=== PATIENT | male | born 1945 | race Caucasian/White ===

== ENCOUNTER → 2024-05-04 | Outpatient (CLI) | payer MEDICARE, OTHER, SELFPAY ==
[2024-05-04 09:47] LABS: Collection Type, Urine Clean Catch
[2024-05-04 10:40] LABS: Basophils # (Auto) 0.1 Thou/mm3 (0.0-0.2); Basophils % (Auto) 1 % (0-2.5); Eosinophils # (Auto) 0.2 Thou/mm3 (0.0-0.5); Eosinophils % (Auto) 2 % (0-10); Hematocrit 48.8 % (41.0-53.0); Hemoglobin 16.6 g/dL (13.5-16.0); Immature Granulocytes % (Auto) 1 % (0-0); Immature Granulocytes Auto 0.09 Thou/mm3 (0.00-0.00); Lymphocytes # (Auto) 1.2 Thou/mm3 (1.0-4.8); Lymphocytes % (Auto) 12 % (10-50); Mean Corpuscular Hemoglobin 29.1 pg (25.0-35.0); Mean Corpuscular Volume 86 fL (80-100); Monocytes # (Auto) 0.9 Thou/mm3 (0.0-0.8); Monocytes % (Auto) 9 % (0-12); Neutrophils # (Auto) 7.2 Thou/mm3 (1.8-7.7); Neutrophils % (Auto) 75 % (37-80); Nucleated Red Blood Cell % 0 /100 WBC (0); Platelet Count 183 Thou/mm3 (140-440); RDW Standard Deviation 40.6 fL (35.1-43.9); Red Blood Count 5.71 Miln/mm3 (4.50-5.90); White Blood Count 9.6 Thou/mm3 (3.8-10.6)
[2024-05-04 10:46] LABS: Bilirubin,Urine Negative (Negative); Blood,Urine 1+ (Negative); Budding Yeast,Urine Present; Color,Urine Yellow (Lt Yel-Yel); Glucose, Urine Negative (Negative); Hyaline Casts,Urine < 1 /hpf (0-1); Ketones,Urine Negative (Negative); Leukocyte Esterase,Urine Positive (Negative); Nitrite,Urine Negative (Negative); PH,Urine 6.5 (5.0-7.0); Protein,Urine 1+ (Neg - Trace); RBC,Urine 23 /hpf (0-3); Specific Gravity,Urine 1.018 (1.001-1.035); Squamous Epithelial Cell,Urine 1 /hpf (0-5); Urobilinogen,Urine Negative mg/dL (0.0-1.0); WBC,Urine 86 /hpf (0-5)
[2024-05-04 11:00] LABS: Clarity,Urine Hazy (Clear/Hazy)
[2024-05-04 11:13] LABS: Alanine Aminotransferase 27 U/L (10-49); Albumin, Serum 4.6 gm/dL (3.4-4.8); Albumin/Globulin Ratio 1.6 (1.2-2.2); Alkaline Phosphatase 81 U/L (46-116); Anion Gap 9 (7-16); Aspartate Amino Transferase 19 U/L (0-34); BUN/Creatinine Ratio 12 Ratio (12-20); Bilirubin,Total 1.4 mg/dL (0.3-1.2); Blood Urea Nitrogen 17 mg/dL (9-23); Calcium 9.7 mg/dL (8.3-10.6); Calcium (Corrected) 9.7 mg/dL (8.5-10.1); Carbon Dioxide 28.4 mMol/L (20.0-31.0); Chloride 105 mMol/L (98-107); Cholesterol 187 mg/dL (132-200); Creatinine (Component) 1.4 mg/dL (0.6-1.3); Globulin 2.9 gm/dL (2.3-3.5); Glucose 135 mg/dL (74-106); HDL Cholesterol 47 mg/dL (40-60); LDL Cholesterol,Calculated 125 mg/dL (0-130); Osmolality,Calculated 286 (275-295); Potassium 4.6 mMol/L (3.4-5.1); Sodium 142 mMol/L (136-145); Thyroid Stimulating Hormone 1.46 uIU/mL (0.55-4.78); Total Protein 7.5 gm/dL (5.7-8.2); Triglycerides 77 mg/dL (30-150); eGFR 51 See Note
[2024-05-04 11:21] LABS: Creatinine MALB Rnd Ur 116 mg/dL (30-125); Microalbumin Creat Ratio 265 mg/gCrea (<30); Microalbumin, Random Urine 307 mg/L (0-300)
[2024-05-06 15:36] LABS: PSA, Total 8.6 ng/mL (< OR = 4.0)
[2024-05-07 07:05] LABS: PSA, % Free 21 % (calc) (>25)
== END | disposition home or self-care (01) ==
LOC: COPL 08:38
PROVIDERS: PCP Family Medicine; Referring Provider Family Medicine; Visit Provider Urology
DX: Z00.00 Encounter for general adult medical examination without abnormal findings (principal); I10 Essential (primary) hypertension; N40.1 Benign prostatic hyperplasia with lower urinary tract symptoms; Z13.0 Encounter for screening for diseases of the blood and blood-forming organs and certain disorders involving the immune mechanism; Z13.1 Encounter for screening for diabetes mellitus; Z13.21 Encounter for screening for nutritional disorder; Z13.220 Encounter for screening for lipoid disorders; Z13.29 Encounter for screening for other suspected endocrine disorder
CPT/HCPCS: 36415; 80053; 80061; 81001; 82043; 82570; 84153; 84154; 84443; 85025; 87086

== ENCOUNTER 2024-05-19 06:35 | Day surgery (SDC) | payer MEDICARE, OTHER, SELFPAY ==
[2024-05-19] VITALS (16 sets, daily range): BP systolic 96–197; BP diastolic 59–132; PULSE 84–107; RESP 12–22; TEMP 36.2–37; O2SAT 95–99; BMI 25.5
[2024-05-19] MEDS: hydrALAZINE INJ 20 MG/ML VIAL IV (07:54)
[2024-05-19] MEDS: DiphenhydrAMINE INJ 50 MG/ML VIAL 25 MG IV (07:55)
[2024-05-19] MEDS: fentaNYL CIT INJ 50 mCg/ML AMP 2ML (ASD USE ONLY) 25 MCG IV (07:56)
[2024-05-19] MEDS: MIDAZOLAM INJ 1 MG/ML VIAL 2 ML (ASD USE ONLY) 2 MG IV (07:56)
--- NOTE | 2024-05-19 08:05 | SUR.PHASEII ---
0805 patient is sleepy and arousable, breathing unlabored, s/p colonoscopy by dr daniels, report received from Gabby ALEXANDER
--- NOTE | 2024-05-19 09:13 | SUR.PHASEII ---
0913 patient is awake, alert, breathing unlabored, meets discharge criteria, discharge instructions given to patient and Camila, patient discharged home in wheelchair with all belongings
== END 2024-05-19 09:13 | disposition home or self-care (01) ==
PROVIDERS: PCP Family Medicine; Referring Provider Surgery; Visit Provider Surgery
PROC: 0DBE8ZX Excision of Large Intestine, Via Natural or Artificial Opening Endoscopic, Diagnostic (ICD-10-PCS; CPT 45380; principal; 2024-05-19 07:30)
DX: D12.0 Benign neoplasm of cecum (principal); Z86.0100 Personal history of colon polyps, unspecified; D12.2 Benign neoplasm of ascending colon; D12.3 Benign neoplasm of transverse colon; D12.5 Benign neoplasm of sigmoid colon; K64.1 Second degree hemorrhoids; K64.4 Residual hemorrhoidal skin tags; K57.31 Diverticulosis of large intestine without perforation or abscess with bleeding
CPT/HCPCS: 45385; 45380; A4649; J0360; J1200; J2250; J3010

== ENCOUNTER → 2024-06-11 | Outpatient (BNVA) | payer MEDICARE, OTHER, SELFPAY | END | disposition home or self-care (01) | PROVIDERS: PCP Family Medicine; Referring Provider Family Medicine; Visit Provider Urology | DX: N40.1 Benign prostatic hyperplasia with lower urinary tract symptoms (principal); N13.8 Other obstructive and reflux uropathy; C67.9 Malignant neoplasm of bladder, unspecified; R97.20 Elevated prostate specific antigen [PSA]; N26.1 Atrophy of kidney (terminal); I10 Essential (primary) hypertension; I48.91 Unspecified atrial fibrillation | CPT/HCPCS: 51701; 81003; 99212; A9270; G0463 ==

== ENCOUNTER → 2024-08-24 | Outpatient (CLI) | payer MEDICARE, OTHER, SELFPAY ==
[2024-08-26 19:49] LABS: PSA, Free 1.53 ng/mL; PSA, Total 7.8 ng/mL (< OR = 4.0)
[2024-08-27 06:41] LABS: PSA, % Free 20 % (calc) (>25)
== END | disposition home or self-care (01) ==
LOC: COPL 08:13
PROVIDERS: PCP Family Medicine; Referring Provider Urology; Visit Provider Urology
DX: N40.1 Benign prostatic hyperplasia with lower urinary tract symptoms (principal)
CPT/HCPCS: 36415; 84153; 84154

== ENCOUNTER → 2024-09-10 | Outpatient (BNVA) | payer MEDICARE, OTHER, SELFPAY | END | disposition home or self-care (01) | PROVIDERS: PCP Family Medicine; Referring Provider Family Medicine; Visit Provider Urology | DX: N40.1 Benign prostatic hyperplasia with lower urinary tract symptoms (principal); N13.8 Other obstructive and reflux uropathy; C67.9 Malignant neoplasm of bladder, unspecified; N26.1 Atrophy of kidney (terminal); N28.89 Other specified disorders of kidney and ureter; R97.20 Elevated prostate specific antigen [PSA]; I10 Essential (primary) hypertension; I25.10 Atherosclerotic heart disease of native coronary artery without angina pectoris; I48.91 Unspecified atrial fibrillation | CPT/HCPCS: 81003; 99212; G0463 ==

== ENCOUNTER 2025-03-17 10:23 | Emergency (ER) | payer MEDICARE, OTHER, SELFPAY ==
[2025-03-17 10:49] VITALS: BP 98/65; PULSE 91; RESP 18; TEMP 36.9; O2SAT 98; BMI 25.2
--- NOTE | 2025-03-17 11:01 | XR_ITS ---
Examination: Wrist, right 3 views Technique: Wrist AP, oblique, lateral 3 views Date and time of exam: March 17, 2025, 1118 hours INDICATIONS: Patient fell today with injury of the wrist, wrist pain. FINDINGS: No acute fracture No dislocation No foreign body IMPRESSION: No acute fracture
--- NOTE | 2025-03-17 11:01 | XR_ITS ---
Examination: Hand, right 3 views Technique: Hand AP, oblique, lateral 3 views Date and time of exam: March 17, 2025, 1113 hours INDICATIONS: Patient fell today with injury to the hand, hand pain. FINDINGS: Prominent osteopenia No acute fracture No dislocation No foreign body IMPRESSION: No acute fracture
--- NOTE | 2025-03-17 12:40 | PD.EDHAND ---
Upper Extremity Injury RME/HPI General Chief Complaint: Hand/Wrist Problems Stated Complaint: PAIN R) WRIST Time Seen by Provider: 03/17/25 10:29 Arrival date/time: 03/17/25 10:23 79-year-old male presents to the Emergency Department today patient was evaluated yesterday after a fall while playing tennis. Patient reports that he has pain in his right wrist and right hand today Limitations: no limitations Related Data Home Medications ?Medication ?Instructions ?Recorded ?Confirmed TAMSULOSIN HCL 0.4 mg PO BID 30 days ##0 04/28/23 03/16/25 apixaban 5 mg tablet (Eliquis) 5 mg PO BID 04/28/23 03/16/25 digoxin 250 mcg (0.25 mg) tablet 250 mcg PO QDAY 04/28/23 03/16/25 metoprolol succinate 100 mg 100 mg PO QDAY 04/28/23 03/16/25 tablet,extended release 24 hr amlodipine 10 mg tablet 10 mg PO QDAY 06/11/24 03/16/25 Previous Rx's ?Medication ?Instructions ?Recorded acetaminophen 300 mg-codeine 30 mg 1 tab PO TID PRN pain #20 tabs 03/16/25 tablet cephalexin 500 mg capsule 500 mg PO TID 7 days #21 caps 03/16/25 Allergies Allergy/AdvReac Type Severity Reaction Status Date / Time No Known Allergies Allergy Verified 03/17/25 10:27 Review of Systems Review of Systems Systems Reviewed: All systems reviewed, normal except as documented Constitutional Constitutional: Reports system reviewed and no additional complaints, except as documented, Denies fever(s) and Denies headache(s) Eyes Eyes: Reports system reviewed and no additional complaints, except as documented and Denies blurry vision ENT Ears, Nose, Mouth, and Throat: Reports system reviewed and no additional complaints, except as documented, Denies headache(s), Denies nasal congestion and Denies nasal discharge Cardiovascular Cardiovascular: Reports system reviewed and no additional complaints, except as documented, Denies chest pain and Denies dyspnea Respiratory Respiratory: Reports system reviewed and no additional complaints, except as documented, Denies chest congestion, Denies cough and Denies dyspnea Gastrointestinal Gastrointestinal: Reports system reviewed and no additional complaints, except as documented and Denies abdominal pain Musculoskeletal Musculoskeletal: Reports system reviewed and no additional complaints, except as documented, Reports arthralgias, Reports joint swelling (Mild swelling right wrist), Denies numbness, Reports stiffness and Denies tingling Integumentary/Breasts Skin/Breast: Reports system reviewed and no additional complaints, except as documented and Denies rash Neurologic Neurologic: Reports system reviewed and no additional complaints, except as documented, Reports as per HPI, Denies headache(s), Denies numbness and Denies tingling Past Medical History Past Medical History NEUROLOGIC: Negative Neurological Disorders or Seizures CARDIAC: Positive Cardiac Disorders, Atrial Fibrillation and Hypertension; Negative Congestive Heart Failure RESPIRATORY: Negative Chronic Obstructive Pulmonary Disease (COPD) GASTROINTESTINAL: Negative Gastrointestinal Disorders GENITOURINARY: Positive Genitourinary Disorders and Benign Prostatic Hyperplasia; Negative Renal Disease MUSCULOSKELETAL: Positive Musculoskeletal Disorders and Carpal Tunnel Syndrome (RIGHT) ENT: Negative Glaucoma ENDOCRINE: Negative Endocrine Disorders, Diabetes Mellitus Type 1 or Diabetes Mellitus Type 2 HEMATOLOGIC: Negative Blood Disorders OTHER HISTORY: Positive Cancer (BLADDER); Negative Blood Transfusions or Anesthesia Reactions Surgical History SURGICAL: Positive Tonsillectomy and Bowel Surgery (HEMORRHOIDECTOMY) Social History SMOKING STATUS: Never smoker ED Exam General Limitations: Present no limitations General appearance: Present alert and in no apparent distress Head Head exam: Present atraumatic Eye Eye exam: Present normal appearance, PERRL and EOMI ENT ENT exam: Present normal exam, normal oropharynx and mucous membranes moist Neck Neck exam: Present normal inspection, full ROM and trachea midline Chest Chest inspection: Present normal inspection and symmetric chest wall rise Respiratory Respiratory exam: Present normal lung sounds bilaterally Cardiovascular Cardiovascular exam: Present regular rate, normal rhythm and normal heart sounds Abdominal Exam Abdominal exam: Present soft and normal bowel sounds Extremities Exam Extremities exam: Present full ROM, tenderness, normal capillary refill and joint swelling (Mild swelling right wrist) Back Exam Back exam: Present normal inspection and full ROM Neurological Exam Neurological exam: Present alert, oriented X3 and CN II-XII intact Psychiatric Psychiatric exam: Present normal affect and normal mood Skin Skin exam: Present warm, dry, intact and normal color Course Quality Measures none Orders Category Date Time Status Splint / Immobilizer STAT Care 03/17/25 12:43 Completed XR hand comp RT min 3V Stat Exams 03/17/25 11:01 Completed XR wrist comp RT min 3V Stat Exams 03/17/25 11:01 Completed Vital Signs Vital signs: Vital Signs Temperature 98.4 F 03/17/25 10:49 Pulse Rate 91 03/17/25 10:49 Respiratory Rate 18 03/17/25 10:49 Blood Pressure 98/65 03/17/25 10:49 Pulse Oximetry (%) 98 03/17/25 10:49 Oxygen Delivery Method Room Air 03/17/25 10:49 O2 saturation 98% room air within normal limits Extremity Injury MDM Narrative [facility] Narrative:: 79-year-old male presents to the Emergency Department today patient was evaluated yesterday after a fall while playing tennis. Patient reports that he has pain in his right wrist and right hand today I reviewed patient's visit from yesterday as well as imaging from yesterday no acute abnormality noted on x-ray yesterday Repeat x-rays obtained no acute fracture or dislocation noted Patient placed in a splint Patient discharged home in no distress to follow-up with primary care doctor in the next 24 to 48 hours and for any worsening symptoms to return to the ER immediately Patient data External records reviewed:: [facility] previous records Clinical information provided by:: patient Social determinants that could affect healthcare access:: none Patient has the following chronic illnesses:: See history How is presenting disease/condition affected by chronic disease/condition?: uneffected by Evaluation data The following diagnostics were reviewed and interpreted by me:: radiology exam(s) Lab and/or radiology exams considered but not ordered:: Radiology obtained Interpretation Summary: Reviewed by me Medications / Prescriptions Medications or Prescriptions considered but not ordered:: Given Medication administrations:: Given Consultations Consultation(s) initiated? (list below): No Diagnosis Upper Extremity Injury Differential Diagnosis: sprain and strain of wrist and fracture of wrist Most likely diagnosis given after review of the tests above:: Wrist fracture Admission Indicated Admission indicated?: not indicated Admission Request Was there a request for admission?: No Disposition Plan Disposition Plan: Discharge Discharge Attestation Discharge Attestation: The patient and all family members were given an opportunity to ask questions and understood the discharge instructions. Discharge instructions specifically effects, indications for sooner follow up or return to the emergency department, and the expected course of current diagnosis. Patient condition: Stable Discharge Plan Plan Patient Disposition: HOME (Self Care) Discharge Disposition comment: Stable Prescriptions/Referrals Prescriptions/Med Rec: No Action metoprolol succinate 100 mg tablet extended release 24 hr 100 mg PO QDAY digoxin 250 mcg (0.25 mg) tablet 250 mcg PO QDAY Eliquis 5 mg tablet 5 mg PO BID amlodipine 10 mg tablet 10 mg PO QDAY TAMSULOSIN HCL 0.4 MG CAP.ER.24H 0.4 mg PO BID 30 Days Qty: 0 cephalexin 500 mg capsule 500 mg PO TID 7 Days Qty: 21 0RF acetaminophen-codeine 300-30 mg tablet 1 tab PO TID PRN (Reason: pain) Qty: 20 0RF Referrals: Uriel (PCP),MD Ricardo [Primary Care Provider, Family Practice] - In 1 week Problem List Clinical Impression: Contusion of right wrist Patient/Caregiver Discharge Instructions Education Materials: Bruises (Contusions) Additional Instructions: Please follow up with your primary care doctor in the next 24-48hrs for any worsening symptoms return here immediately Please wear your splint Please take pain medication prescribed by ER provider yesterday Print Language: Albanian Stand Alone Forms: Vanessa Award Info., Patient Portal Info Letter PA/SHIPPING SUPERVISOR Supervising Physician PA/SHIPPING SUPERVISOR Supervising Physician: Dr. bell
--- NOTE | 2025-03-17 12:56 | PC.NURSE ---
LACE UP WRIST SUPPORT SPLINT APPLIED TO PT'S R WRIST AT THIS TIME.
[2025-03-17 12:58] VITALS: BP 152/83; PULSE 92; RESP 19; TEMP 36.4; O2SAT 96
== END 2025-03-17 13:02 | disposition home or self-care (01) ==
PROVIDERS: Emergency Provider Nurse Practitioner Primary Care; PCP Family Medicine
DX: S60.211A Contusion of right wrist, initial encounter (principal); S69.91XA Unspecified injury of right wrist, hand and finger(s), initial encounter; W18.30XA Fall on same level, unspecified, initial encounter; Y93.73 Activity, racquet and hand sports
CPT/HCPCS: 73110; 73130; 99283